=== PATIENT | male | born 1970 | race Two or more races ===

== ENCOUNTER 2016-12-03 21:30 | Emergency (ER) | payer OTHER ==
[~2016-12-03] VITALS: Ht 180.3 cm; Wt 88.5 kg
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
[2016-12-03] MEDS ORDERED: HYDROMORPHONE 1 MG/1 ML DISP.SYRIN IM ONE (22:00)
[2016-12-03] MEDS ORDERED: ONDANSETRON ODT 4 MG TAB.RAPDIS SL ONE (22:00)
[2016-12-03] MEDS ORDERED: ONDANSETRON ODT 4 MG TAB.RAPDIS ONE (22:14)
[2016-12-03] MEDS ORDERED: HYDROMORPHONE 2 MG/1 ML DISP.SYRIN ONE (22:14)
--- NOTE | 2016-12-03 23:54 | NUR ---
Patient discharged to home in stable conditon. Written and verbal after care instructions given. Patient verbalizes understanding of instructions.
[2016-12-03 23:55] VITALS: BP 128/88
== END 2016-12-04 | disposition home or self-care (01) ==
LOC: ER 21:33
DX: S80.11XA Contusion of right lower leg, initial encounter (principal); W18.30XA Fall on same level, unspecified, initial encounter; Y93.89 Activity, other specified; Y99.8 Other external cause status; Y92.89 Other specified places as the place of occurrence of the external cause
CPT/HCPCS: 73590; 73610; 96372; 99284; A4663; J1170; Q0162

== ENCOUNTER 2018-07-08 22:05 | Emergency (ER) | payer OTHER ==
[~2018-07-08] VITALS: Ht 180.3 cm; Wt 87.1 kg
--- NOTE | 2018-07-08 22:25 | NUR ---
PT A/OX4, ABLE TO FOLLOW COMMANDS. PT C/O L LOWER BACK PAIN THAT RADIATES TO THE L HIP. ONSET OF PAIN YESTERDAY 07/07/18, DENIES INJURY OR PHYSICAL ACTIVITY PRIOR TO ONSET OF PAIN. PAIN PROVOKED UPON MOVEMENT, RADIATES TO L HIP, 04/28, CONSTANT. PT DENIES C/P, SOB, N/V/D, DIZZINESS, HEADACHE. ER MD AT BEDSIDE.
[2018-07-08] MEDS ORDERED: ONDANSETRON 4 MG/2 ML VIAL IM ONE (22:30)
[2018-07-08] MEDS ORDERED: HYDROMORPHONE 1 MG/1 ML DISP.SYRIN IM ONE (22:30)
[2018-07-08] MEDS ORDERED: IBUPROFEN 800 MG TABLET PO ONE (22:30)
[2018-07-08] MEDS ORDERED: IBUPROFEN 800 MG TABLET ONE (22:35)
[2018-07-08] MEDS ORDERED: HYDROMORPHONE 1 MG/1 ML DISP.SYRIN ONE ×2 (22:35→23:36)
[2018-07-08] MEDS ORDERED: ONDANSETRON 4 MG/2 ML VIAL ONE (22:35)
[2018-07-08] MEDS ORDERED: HYDROMORPHONE 1 MG/1 ML DISP.SYRIN IV ONE (23:30)
[2018-07-08 23:35] LABS: BASOPHILS % (AUTO) 0.5 % (0.0-2.0); EOSINOPHILS # (AUTO) 0.1 K/uL (0.0-0.7); EOSINOPHILS % (AUTO) 1.6 % (0.0-7.0); HEMATOCRIT 40.8 % (36.7-47.1); HEMOGLOBIN 14.5 g/dL (12.5-16.3); LYMPHOCYTES # (AUTO) 2.5 K/uL (20.0-40.0); LYMPHOCYTES % (AUTO) 29.6 % (20.5-51.5); MEAN CORPUSCULAR HEMOGLOBIN 30.5 uug (23.8-33.4); MEAN CORPUSCULAR HGB CONC 36 g/dL (32.5-36.3); MONOCYTES # (AUTO) 0.8 K/uL (2.0-10.0); MONOCYTES % (AUTO) 9.4 % (0.0-11.0); NEUTROPHILS # (AUTO) 4.9 K/uL (1.8-8.9); NEUTROPHILS % (AUTO) 58.9 % (38.5-71.5); PLATELET COUNT (AUTO) 233 K/uL (152-348); RED BLOOD CELL COUNT(AUTO) 4.74 MIL/uL (4.06-5.63); WHITE BLOOD COUNT (AUTO) 8.3 K/uL (3.6-10.2)
[2018-07-08 23:53] LABS: CREATININE 0.8 mg/dL (0.6-1.3); POTASSIUM 3.9 mmol/L (3.5-5.1)
[2018-07-08 23:59] LABS: BILIRUBIN,DIRECT 0.1 mg/dL (0.0-0.2); TOTAL PROTEIN, SERUM 7.3 g/dL (6.4-8.2)
[2018-07-09 00:11] LABS: *BILIRUBIN,URIN NEGATIVE (NEGATIVE); *BLOOD, URINE NEGATIVE (NEGATIVE); *CLARITY,URINE CLEAR (CLEAR); *COLOR,URINE YELLOW (YELLOW); *KETONES,URINE NEGATIVE (NEGATIVE); *PROTEIN,URINE NEGATIVE (NEGATIVE); *UROBILINOGEN,URINE 0.2 E.U./dl (NORMAL); LEUKOCYTE ESTERASE ,URINE NEGATIVE (NEGATIVE); NITRITE, URINE NEGATIVE (NEGATIVE); UGLUCOSE NEGATIVE (NEGATIVE)
[2018-07-09 00:14] LABS: BACTERIA,URINE NONE SEEN /HPF (NONE SEEN); RBC,URINE 0-3 /HPF (0-3); SQUAMOUS EPITHELIAL CELL,UR FEW /HPF (NONE SEEN); WBC,URINE 0-3 /HPF (0-3)
[2018-07-09] MEDS ORDERED: IV NORMAL SALINE 250 ML IV ONE (00:16)
[2018-07-09] MEDS ORDERED: IOHEXOL 300MG/ML 100 ML INFUS..BTL ONE (00:16)
[2018-07-09] MEDS ORDERED: SWABABLE VALVE TRANSFER SET EA MC ONE (00:16)
--- NOTE | 2018-07-09 00:18 | NUR ---
PT TAKEN TO RADIOLOGY FOR CT SCAN.
[2018-07-09 00:19] LABS: BILIRUBIN,TOTAL 0.3 mg/dL (0.2-1.0)
--- NOTE | 2018-07-09 00:33 | NUR ---
PT BACK IN UNIT FROM CT SCAN.
--- NOTE | 2018-07-09 01:30 | NUR ---
Patient discharged to home in stable conditon. Written and verbal after care instructions given. Patient verbalizes understanding of instructions. PT D/C W/ PRESCRIPTIONS. ALL BELONGINGS W/ PT. PT SELF-AMBULATED W/O DIFFICULTY. 18G R FOREARM IV ACCESS REMOVED PRIOR TO D/C - INNER CANNULA INTACT. PT STATES HE WILL TAKE UBER BACK HOME.
[2018-07-09 01:31] VITALS: BP 128/94
== END 2018-07-09 01:32 | disposition home or self-care (01) ==
LOC: ER 22:07
DX: M25.552 Pain in left hip (principal)
CPT/HCPCS: 36415; 73502; 73701; 80048; 80076; 81001; 82550; 85025; 96372 ×2; 96374; 99284; J1170 ×2; J2405; Q9967; A4663; J7050

== ENCOUNTER 2022-10-04 14:28 | Emergency (ER) | payer OTHER ==
[~2022-10-04] VITALS: Ht 180.3 cm; Wt 88.5 kg
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
[2022-10-04] MEDS ORDERED: IBUP-1955 PO (15:46)
--- NOTE | 2022-10-04 16:00 | NUR ---
Ortho boot provided, well tolerated by the pt.
--- NOTE | 2022-10-04 16:37 | NUR ---
Patient discharged to home in stable condition. Written and verbal after care instructions given. Patient verbalizes understanding of instructions. Stressed follow up or return to ER for worsening s/s.
[2022-10-04 16:38] VITALS: BP 131/79
== END 2022-10-04 16:30 | disposition home or self-care (01) ==
LOC: ER 14:28
DX: S09.90XA Unspecified injury of head, initial encounter (principal); S00.81XA Abrasion of other part of head, initial encounter; S20.211A Contusion of right front wall of thorax, initial encounter; S80.212A Abrasion, left knee, initial encounter; S92.901A Unspecified fracture of right foot, initial encounter for closed fracture; V28.09XA Other motorcycle driver injured in noncollision transport accident in nontraffic accident, initial encounter; Y92.488 Other paved roadways as the place of occurrence of the external cause
CPT/HCPCS: 70450; 71045; 73630; A4663

== ENCOUNTER 2023-07-27 13:37 | Emergency (ER) | payer OTHER ==
[~2023-07-27] VITALS: Ht 180.3 cm; Wt 81.6 kg
[~2023-07-27 13:37] MED LIST: IBUP-1955 PO
[2023-07-27] MEDS ORDERED: HYDROCODONE/APAP 10-325 MG TABLET PO ONE (14:00)
[2023-07-27] MEDS ORDERED: HYDROCODONE/APAP 10-325 MG TABLET ONE (14:04)
[2023-07-27] MEDS ORDERED: HYDR-3980 PO (14:43)
[2023-07-27 15:11] VITALS: BP 141/76; TEMP 98.2; O2SAT 98
== END 2023-07-27 15:13 | disposition home or self-care (01) ==
LOC: ER 13:37
DX: S50.02XA Contusion of left elbow, initial encounter (principal); S70.02XA Contusion of left hip, initial encounter; S09.90XA Unspecified injury of head, initial encounter; Z79.1 Long term (current) use of non-steroidal anti-inflammatories (NSAID); Z79.899 Other long term (current) drug therapy; W01.198A Fall on same level from slipping, tripping and stumbling with subsequent striking against other object, initial encounter; Y93.89 Activity, other specified; Y92.89 Other specified places as the place of occurrence of the external cause; Y99.8 Other external cause status
CPT/HCPCS: 73070; 73501; A4606; A4663